=== PATIENT | male | born 1960 | race Caucasian/White ===

== ENCOUNTER 2022-12-03 06:39 | Emergency (ER) | payer SELFPAY ==
[~2022-12-03] VITALS: Ht 177.8 cm; Wt 105.2 kg
[2022-12-03 06:50] VITALS: BP_SYST 148
--- NOTE | 2022-12-03 06:52 | NUR ---
Dr. MINERVA GONZALEZ at bedside examining the patient.
--- NOTE | 2022-12-03 06:56 | NUR ---
complaints of difficulty swallowing for the last two weeks
--- NOTE | 2022-12-03 07:20 | NUR ---
Paulinaed pt from den[facility] Mullins. pt bib by self c/o a sore throat that "feels like it's closing" for the past 2 weeks, pt is g[facility] 15 eyes open spon, oriented to person, place, time, and situation. pt obeys commands. pt denies sob, chest pain, or difficulty breathing. no angiedema noted on assessment, or difficulty breathing. pt denies visual or auditory issues. pt is in bed 4 on the monitor.
[2022-12-03 07:39] VITALS: BP_SYST 158
--- NOTE | 2022-12-03 07:42 | NUR ---
Patient given written and verbal discharge instructions and verbalizes understanding. ER MD discussed with patient the results and treatment provided. Patient in stable condition. ID arm band removed. Patient educated on dysphagia management and to follow up with PMD. Pain Scale 2 out of 10 . Opportunity for questions provided and answered.
== END 2022-12-03 07:42 | disposition home or self-care (01) ==
LOC: SED 06:39
DX: R13.10 Dysphagia, unspecified (principal); Z79.899 Other long term (current) drug therapy
CPT/HCPCS: 99281